=== PATIENT | female | born 1975 | race Caucasian/White ===

== ENCOUNTER 2022-03-17 03:07 | Emergency (ER) | payer MEDICAID ==
[~2022-03-17] VITALS: Ht 157.5 cm; Wt 72.6 kg
[2022-03-17 03:07] VITALS: BP 150/76
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
--- NOTE | 2022-03-17 03:32 | NUR ---
PT IN ROOM 7. GOWN ON PATIENT. ALL EQUIMENT AND ITEMS IN ROOM STRIPPED AND BAGGED FOR PATIENTS SAFTEY.
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
[2022-03-17 04:16] LABS: BASOPHILS % (AUTO) 0.3 % (0.0-2.0); EOSINOPHILS # (AUTO) 0.1 K/uL (0-0.4); EOSINOPHILS % (AUTO) 0.8 % (0.0-4.0); HEMATOCRIT 38.9 % (36-48); HEMOGLOBIN 13.2 g/dL (12.0-16.0); LYMPHOCYTES % (AUTO) 25.1 % (20.5-51.1); MEAN CORPUSCULAR HEMOGLOBIN 30 pg (27-31); MEAN CORPUSCULAR HGB CONC 34 g/dL (33-37); MEAN CORPUSCULAR VOLUME 87.6 fL (80-94); MONOCYTES # (AUTO) 0.6 K/uL (0.8-1.0); MONOCYTES % (AUTO) 7.9 % (1.7-9.3); NEUTROPHILS # (AUTO) 5.2 K/uL (1.8-7.7); NEUTROPHILS % (AUTO) 65.9 % (42.2-75.2); PLATELET COUNT (AUTO) 310 K/uL (140-450); RED BLOOD CELL COUNT(AUTO) 4.44 MIL/uL (4.20-5.40); RED CELL DISTRIBUTION WIDTH 13.9 % (11.6-13.7); WHITE BLOOD COUNT (AUTO) 7.9 K/uL (4.8-10.8)
[2022-03-17 04:49] LABS: ALBUMIN 3.4 g/dL (3.4-5.0); ANION GAP 12.2 (8-16); ASPARTATE AMINOTRANSFERASE 37 U/L (15-37); CARBON DIOXIDE 25.8 mmol/L (21-32); CHLORIDE 106 mmol/L (98-107); CREATININE 0.5 mg/dL (0.6-1.3); GFR ARICAN-AMERICAN 172 mL/min (>90); GLUCOSE 123 mg/dL (74-106); SALICYLATE < 2.8 mg/dL (2.8-20.0); SODIUM SERUM 141 mmol/L (136-145); TOTAL BILIRUBIN 0.2 mg/dL (0.0-1.0); UREA NITROGEN, BLOOD 9 mg/dL (7-18)
--- NOTE | 2022-03-17 05:23 | NUR ---
REQUEST FOR TELEPSYCH . PENDING ETA
--- NOTE | 2022-03-17 05:34 | NUR ---
COVID SWAB COLLECTED AND SENT TO LAB
[2022-03-17 06:07] LABS: BARBITURATE, URINE NEGATIVE ng/ml (NEG <=200); BENZODIAZEPINE, URINE NEGATIVE ng/mL (NEG <=200); CANNABINOID, URINE NEGATIVE ng/mL (NEG <=50); COCAINE, URINE NEGATIVE ng/mL (NEG <=300); OPIATE, URINE NEGATIVE ng/mL (NEG <=2000); PHENCYCLIDINE SCREEN,URINE NEGATIVE ng/mL (NEG <=25)
[2022-03-17] MEDS ORDERED: POTASSIUM CHLORIDE 10 MEQ TABER PO ONE (06:40)
--- NOTE | 2022-03-17 06:48 | NUR ---
BREAKFAST ORDER FOR PATIENT
--- NOTE | 2022-03-17 07:30 | NUR ---
REPORT RECEIVED FROM JOAQUIN BUCHANAN. ASSUMED CARE AT THIS TIME
--- NOTE | 2022-03-17 08:05 | NUR ---
PT PROVIDED W/ BREAKFAST. PT AWAKE AND EATING IN BED
--- NOTE | 2022-03-17 09:32 | NUR ---
PERSON TO CONTACT PER PT REQUEST JONATHAN LAW - DAUGHTER [phone]
--- NOTE | 2022-03-17 11:17 | NUR ---
DR. FRANCISCO FROM [facility] [place] EVALUATING PATIENT VIA TELEPSYCH.
--- NOTE | 2022-03-17 11:51 | NUR ---
NEW PERSON TO CONTACT: TAMELA(PATIENTS SON) [phone] PREVIOUS CONTACT IS A MINOR
--- NOTE | 2022-03-17 12:34 | NUR ---
SPOKE WITH MEHDI , UPDATED ON PT STATUS
--- NOTE | 2022-03-17 15:05 | NUR ---
PT IN VIEW. HOB REPOSITIONED PER COMFORT . PT AT REST , NO VISIBLE DISTRESS. RESPIRATIONS EVEN AND UNLABORED
--- NOTE | 2022-03-17 16:25 | NUR ---
[place]/ [place] . PT ACCEPTED AT [facility] IN [place]. - "[facility]" PENDING ARRANGEMENT FOR TX Addendum: 03/17/22 at 1750 by [facility] ADMITTING OFFICE [phone]
--- NOTE | 2022-03-17 16:34 | NUR ---
PT SON- TAMELA CONTACTED AND UPDATED ON PT STATUS AND MADE AWARE OF PENDING TX. HOSPITAL PHONE HANDED TO PT . PT ON PHONE W/ SON
--- NOTE | 2022-03-17 17:55 | NUR ---
REPORT GIVEN TO ALEX RAYMUNDO AND MADE AWARE OF PENDING PT TX . ALL QUESTIONS ANSWERED
--- NOTE | 2022-03-17 18:12 | NUR ---
PT TX TO NEW FACILTY VIA GURNEY / THROUGH [facility]. ALL BELONGINGS SENT W/ PATIENT
[2022-03-17 18:17] VITALS: BP 144/60
--- NOTE | 2022-03-17 18:17 | NUR ---
FIDENCIO RAPP MADE AWARE OF TX
--- NOTE | 2022-03-17 18:18 | NUR ---
Chart checked and completed. The patient's care was reviewed and supervised by Narcisa Terrell RN.
== END 2022-03-17 18:12 ==
LOC: MED 03:07
DX: R45.851 Suicidal ideations (principal); Z20.822 Contact with and (suspected) exposure to COVID-19
CPT/HCPCS: 36415; 80053; 80305; 84702; 85025; 87426; 87635; 99285; C9803; G0480; G0482; 93005

== ENCOUNTER 2022-12-05 12:24 | Emergency (ER) | payer MEDICAID ==
[~2022-12-05] VITALS: Ht 152.4 cm; Wt 67.1 kg
[2022-12-05 12:38] VITALS: BP 141/83
[2022-12-05] MEDS ORDERED: ONDANSETRON 4 MG ODT PO ONE (13:20)
[2022-12-05] MEDS ORDERED: HYDROcodone/APAP 5/325 MG 1 TAB TAB PO ONE (13:20)
--- NOTE | 2022-12-05 14:24 | NUR ---
MOVED TO ER BED 11
[2022-12-05] MEDS ORDERED: LIDOCAINE MPF 1% 10 MG/ML VIAL INJ ONE (14:40)
[2022-12-05] MEDS ORDERED: ONDANSETRON 4 MG TAB ONE (14:49)
[2022-12-05] MEDS ORDERED: HYDROcodone/APAP 5/325 MG 1 TAB TAB ONE (14:50)
--- NOTE | 2022-12-05 14:52 | NUR ---
ERMD BEDSIDE FOR PT SUTURE
[2022-12-05] MEDS ORDERED: ACET-10509 PO (15:10)
[2022-12-05] MEDS ORDERED: IBUP-2213 PO (15:10)
[2022-12-05] MEDS ORDERED: BACITRACIN OINT 500 UNITS/GM PKT TP ONE (15:20)
--- NOTE | 2022-12-05 15:43 | NUR ---
Patient discharged with v/s stable. Written and verbal after care instructions given and explained. Patient alert, oriented and verbalized understanding of instructions. Ambulatory with steady gait. All questions addressed prior to discharge. ID band removed. Patient advised to follow up with PMD. Rx of ACETAMINOPHEN, IBUPROFEN given. Patient educated on indication of medication including possible reaction and side effects. Opportunity to ask questions provided and answered.
== END 2022-12-05 15:41 | disposition home or self-care (01) ==
LOC: MED 12:24
DX: S01.412A Laceration without foreign body of left cheek and temporomandibular area, initial encounter (principal); S06.0X0A Concussion without loss of consciousness, initial encounter; Z79.899 Other long term (current) drug therapy; Z79.1 Long term (current) use of non-steroidal anti-inflammatories (NSAID); W50.0XXA Accidental hit or strike by another person, initial encounter; Y93.89 Activity, other specified; Y92.89 Other specified places as the place of occurrence of the external cause; Y99.8 Other external cause status
CPT/HCPCS: 12014; 70150; 99283; J2001; Q0162

== ENCOUNTER 2022-12-11 19:44 | Emergency (ER) | payer MEDICAID ==
[~2022-12-11] VITALS: Ht 149.9 cm; Wt 66.2 kg
[~2022-12-11 19:44] MED LIST: ACET-10509 PO; IBUP-2213 PO
[2022-12-11 20:41] VITALS: BP 121/84
--- NOTE | 2022-12-11 22:42 | NUR ---
SEEN AND EXAMINED BY BAUTISTA
[2022-12-11] MEDS ORDERED: TETRACAINE HCL/PF 0.5% OPTH 4 ML BTL OP ONE (22:45)
[2022-12-11] MEDS ORDERED: FLUORESCEIN OPTH STRIP 1 MG OP ONE (22:45)
[2022-12-12] MEDS ORDERED: KETOROLAC 30 MG/ML VIAL IM ONE (00:05)
[2022-12-12] MEDS ORDERED: ACET-10509 PO (00:09)
[2022-12-12] MEDS ORDERED: CILOS OP (00:09)
[2022-12-12 00:30] VITALS: BP 117/79
== END 2022-12-12 00:30 | disposition home or self-care (01) ==
LOC: MED 19:44
DX: S05.02XA Injury of conjunctiva and corneal abrasion without foreign body, left eye, initial encounter (principal); X58.XXXA Exposure to other specified factors, initial encounter; Y93.89 Activity, other specified; Y92.89 Other specified places as the place of occurrence of the external cause; Y99.8 Other external cause status
CPT/HCPCS: 96372; 99283; J1885